=== PATIENT | female | born 1990 | race Asian ===

== ENCOUNTER → 2022-06-27 | Outpatient (CLI) | payer BC ==
[2022-06-27 10:14] LABS: Urine Bacteria NONE SEEN /hpf (None Seen); Urine Blood Negative /uL (Negative); Urine Specific Gravity 1.012 (1.001-1.035); Urine WBC <1 /hpf (0 - 5)
[2022-06-27 10:17] LABS: Basophils # (auto) 0.1 10 ^3/uL (0-0.2); Eosinophils # (auto) 0.3 10 ^3/uL (0-0.8); Eosinophils % (auto) 3.7 % (0.0-7.0); Hematocrit 38.9 % (36.0-46.0); Lymphocytes # (auto) 2.5 10 ^3/uL (0.4-5.4); Lymphocytes % (auto) 36.6 % (10.0-50.0); Mean Corpuscular Hemoglobin 30.7 pg (28.0-32.0); Mean Corpuscular Hgb Conc. 33.5 g/dL (32.0-36.0); Mean Corpuscular Volume 91.8 fL (80.0-100.0); Monocytes # (auto) 0.4 10 ^3/uL (0-1.3); Monocytes % (auto) 6.4 % (0.0-12.0); Neutrophils # (auto) 3.6 10 ^3/uL (1.6-8.6); Neutrophils % (auto) 52.3 % (37.0-80.0); Nucleated Red Blood Cells % 0.1 %; Red Blood Cells 4.24 10^6/uL (4.0-5.20); White Blood Cell 6.8 10^3/uL (4.4-10.8)
[2022-06-27 10:45] LABS: Albumin 3.8 g/dL (3.4-5.0); BUN/Creatinine Ratio 18.8 (10.0-20.0); Bilirubin, Total 0.8 mg/dL (0.2-1.0); Calcium 8.6 mg/dL (8.5-10.1); Total Protein 7.5 g/dL (6.4-8.2)
== END | disposition home or self-care (01) ==
LOC: LAB 09:27
PROVIDERS: ATTEND Internal Medicine
DX: Z00.00 Encounter for general adult medical examination without abnormal findings (principal)
CPT/HCPCS: 36415; 80053; 80061; 81001; 83036; 84439; 84443; 85025; 86703; 86803

== ENCOUNTER → 2022-10-25 | Outpatient (CLI) | payer BC | END | disposition home or self-care (01) | LOC: LAB 07:16 | PROVIDERS: ATTEND Internal Medicine | DX: R94.6 Abnormal results of thyroid function studies (principal) | CPT/HCPCS: 36415; 84439; 84443 ==

== ENCOUNTER → 2023-03-18 | Outpatient (CLI) | payer BC ==
[2023-03-18 15:19] LABS: Basophils # (auto) 0 10 ^3/uL (0-0.2); Basophils % (auto) 0.7 % (0.0-2.0); Eosinophils # (auto) 0.2 10 ^3/uL (0-0.8); Eosinophils % (auto) 3.6 % (0.0-7.0); Hematocrit 40.1 % (36.0-46.0); Hemoglobin 13.2 g/dL (12.2-16.2); Lymphocytes # (auto) 2.2 10 ^3/uL (0.4-5.4); Lymphocytes % (auto) 33.2 % (10.0-50.0); Mean Corpuscular Hemoglobin 30.1 pg (28.0-32.0); Mean Corpuscular Hgb Conc. 32.9 g/dL (32.0-36.0); Mean Corpuscular Volume 91.4 fL (80.0-100.0); Monocytes # (auto) 0.4 10 ^3/uL (0-1.3); Monocytes % (auto) 5.5 % (0.0-12.0); Neutrophils # (auto) 3.7 10 ^3/uL (1.6-8.6); Red Blood Cells 4.39 10^6/uL (4.0-5.20); Red Cell Distribution Width 13.5 % (11.8-14.3); White Blood Cell 6.5 10^3/uL (4.4-10.8)
[2023-03-18 15:41] LABS: % Iron Saturation 13.6 % (15-50)
== END | disposition home or self-care (01) ==
LOC: LAB 15:00
PROVIDERS: ATTEND Dermatology
DX: L63.0 Alopecia (capitis) totalis (principal)
CPT/HCPCS: 36415; 83540; 83550; 85025

== ENCOUNTER → 2023-09-17 | Outpatient (CLI) | payer BC ==
[2023-09-17 13:14] LABS: Basophils # (auto) 0.1 10 ^3/uL (0-0.2); Eosinophils # (auto) 0.3 10 ^3/uL (0-0.8); Hematocrit 40.3 % (36.0-46.0); Hemoglobin 13.8 g/dL (12.2-16.2); Lymphocytes # (auto) 2.4 10 ^3/uL (0.4-5.4); Lymphocytes % (auto) 36.4 % (10.0-50.0); Mean Corpuscular Hemoglobin 31.1 pg (28.0-32.0); Mean Corpuscular Hgb Conc. 34.1 g/dL (32.0-36.0); Mean Corpuscular Volume 91.2 fL (80.0-100.0); Monocytes # (auto) 0.4 10 ^3/uL (0-1.3); Monocytes % (auto) 6.1 % (0.0-12.0); Neutrophils # (auto) 3.4 10 ^3/uL (1.6-8.6); Neutrophils % (auto) 52.5 % (37.0-80.0); Red Blood Cells 4.42 10^6/uL (4.0-5.20); White Blood Cell 6.5 10^3/uL (4.4-10.8)
[2023-09-17 13:33] LABS: Urine Bacteria FEW /hpf (None Seen); Urine Blood TRACE /uL (Negative); Urine Clarity Turbid (Clear); Urine Color Light-Yellow (Yellow); Urine Mucus FEW (None Seen); Urine Protein, UAD Negative (Negative); Urine Specific Gravity 1.015 (1.001-1.035); Urine Urobilinogen Normal (Negative); Urine WBC 1 /hpf (0 - 5); Urine pH 5.5 (5.0-9.0)
[2023-09-17 13:47] LABS: % Iron Saturation 22.2 % (15-50); Alanine Aminotransferase 52 U/L (7-40); Albumin 4.7 g/dL (3.2-4.8); Alkaline Phosphatase 81 U/L (46-116); Anion Gap 4 (5-15); Aspartate Aminotransferase 27 U/L (13-40); BUN/Creatinine Ratio 11.4 (10.0-20.0); Blood Urea Nitrogen 8 mg/dL (9-23); Calcium 9.6 mg/dL (8.5-10.1); Carbon Dioxide 26 mmol/L (20-30); Chloride 109 mmol/L (98-107); Cholesterol 185 mg/dL (< 200); Glucose 83 mg/dL (74-106); HDL Cholesterol 64 mg/dL (40-59); LDL Cholesterol 108 mg/dL (< 100); Potassium 3.9 mmol/L (3.5-5.1); Sodium 139 mmol/L (136-145); Triglycerides 61 mg/dL (< 150)
[2023-09-17 13:48] LABS: Bilirubin, Total 0.8 mg/dL (0.2-1.0); Total Protein 7.6 g/dL (5.7-8.2)
== END | disposition home or self-care (01) ==
LOC: LAB 12:59
PROVIDERS: ATTEND Internal Medicine
DX: Z13.21 Encounter for screening for nutritional disorder (principal); Z00.01 Encounter for general adult medical examination with abnormal findings; E61.1 Iron deficiency
CPT/HCPCS: 36415; 80053; 80061; 81001; 82306; 83036; 83540; 83550; 84439; 84443; 85025

== ENCOUNTER → 2023-11-20 | Outpatient (CLI) | payer BC | END | disposition home or self-care (01) | LOC: LAB 06:44 | PROVIDERS: ATTEND Internal Medicine | DX: Z32.00 Encounter for pregnancy test, result unknown (principal); Z31.9 Encounter for procreative management, unspecified; N92.6 Irregular menstruation, unspecified | CPT/HCPCS: 36415; 84702 ==

== ENCOUNTER → 2024-01-22 | Outpatient (CLI) | payer BC ==
[2024-01-22 08:02] LABS: Alanine Aminotransferase 50 U/L (7-40); Albumin 4.3 g/dL (3.2-4.8); Alkaline Phosphatase 73 U/L (46-116); Anion Gap 8 (5-15); Aspartate Aminotransferase 25 U/L (13-40); BUN/Creatinine Ratio 12.5 (10.0-20.0); Bilirubin, Total 0.9 mg/dL (0.2-1.0); Blood Urea Nitrogen 10 mg/dL (9-23); Calcium 9.6 mg/dL (8.7-10.4); Carbon Dioxide 23 mmol/L (20-31); Chloride 109 mmol/L (98-107); Glucose 87 mg/dL (74-106); Sodium 140 mmol/L (136-145); Total Protein 7.2 g/dL (5.7-8.2)
== END | disposition home or self-care (01) ==
LOC: LAB 07:16
PROVIDERS: ATTEND Internal Medicine
DX: E78.00 Pure hypercholesterolemia, unspecified (principal); E55.9 Vitamin D deficiency, unspecified; R74.01 Elevation of levels of liver transaminase levels
CPT/HCPCS: 36415; 80053; 82306

== ENCOUNTER → 2024-03-11 | Outpatient (CLI) | payer BC | END | disposition home or self-care (01) | LOC: LAB 08:00 | PROVIDERS: ATTEND Obstetrics & Gynecology | DX: R87.619 Unspecified abnormal cytological findings in specimens from cervix uteri (principal) ==

== ENCOUNTER → 2024-07-20 | Outpatient (CLI) | payer BC ==
[2024-07-20 08:10] LABS: Alkaline Phosphatase 60 U/L (46-116); Anion Gap 10 (5-15); BUN/Creatinine Ratio 29.1 (10.0-20.0); Blood Urea Nitrogen 23 mg/dL (9-23); Calcium 9.7 mg/dL (8.7-10.4); Carbon Dioxide 22 mmol/L (20-31); Chloride 107 mmol/L (98-107); Glucose 88 mg/dL (74-106); Potassium 4.3 mmol/L (3.5-5.1); Sodium 139 mmol/L (136-145)
[2024-07-20 08:11] LABS: Total Protein 7.3 g/dL (5.7-8.2)
[2024-07-20 08:12] LABS: Alanine Aminotransferase 55 U/L (7-40); Albumin 4.7 g/dL (3.2-4.8); Aspartate Aminotransferase 27 U/L (13-40); Bilirubin, Total 0.7 mg/dL (0.2-1.0)
== END | disposition home or self-care (01) ==
LOC: LAB 06:37
PROVIDERS: ATTEND Internal Medicine
DX: R74.01 Elevation of levels of liver transaminase levels (principal)
CPT/HCPCS: 36415; 80053

== ENCOUNTER 2024-10-13 06:43 | Outpatient (CLI) | payer BC ==
[2024-10-13 07:47] LABS: Urine Protein, UAD 1+ (Negative)
[2024-10-13 07:52] LABS: Hematocrit 40.5 % (36.0-46.0); Hemoglobin 13.5 g/dL (12.2-16.2); Mean Corpuscular Hemoglobin 30.6 pg (28.0-32.0); Mean Corpuscular Volume 92.0 fL (80.0-100.0); Nucleated Red Blood Cells % 0.1 %
[2024-10-13 08:01] LABS: Beta HCG, Quantitative 0.8 mIU/mL (1.5-4.2)
[2024-10-13 08:04] LABS: Alanine Aminotransferase 26 U/L (7-40); Alkaline Phosphatase 64 U/L (46-116); Anion Gap 12 (5-15); BUN/Creatinine Ratio 20.7 (10.0-20.0); Blood Urea Nitrogen 18 mg/dL (9-23); Calcium 10.2 mg/dL (8.7-10.4); Carbon Dioxide 22 mmol/L (20-31); Cholesterol 178 mg/dL (< 200); Glucose 80 mg/dL (74-106); Potassium 3.9 mmol/L (3.5-5.1); Sodium 142 mmol/L (136-145); Thyroid Stimulating Hormone 2.76 uIU/mL (0.55-4.78); Total Protein 7.6 g/dL (5.7-8.2); Triglycerides 80 mg/dL (< 150)
[2024-10-13 08:05] LABS: Albumin 4.9 g/dL (3.2-4.8); Bilirubin, Total 1.9 mg/dL (0.2-1.0); Chloride 108 mmol/L (98-107); HDL Cholesterol 62 mg/dL (40-59)
[2024-10-13 08:46] LABS: Free T4 (Free Thyroxine) 1.25 ng/dL (0.89-1.76)
[2024-10-13 08:47] LABS: Follicle Stimulating Hormone 2.6 IU/L (SEE BELOW)
[2024-10-13] MEDS ORDERED: TRET0.0212 TOP (13:29)
[2024-10-13] MEDS ORDERED: FOLI-119 PO (13:29)
[2024-10-13] MEDS ORDERED: ERGO1CAP12 PO (13:29)
[2024-10-14] MEDS ORDERED: HYDR-3682 PO (14:01)
[2024-10-14] MEDS ORDERED: SERT-206 PO (14:01)
== END 2024-10-13 19:12 | disposition home or self-care (01) ==
LOC: LAB 06:43
PROVIDERS: ATTEND Internal Medicine
DX: E28.2 Polycystic ovarian syndrome (principal); E61.1 Iron deficiency; E78.00 Pure hypercholesterolemia, unspecified; R74.01 Elevation of levels of liver transaminase levels; Z00.01 Encounter for general adult medical examination with abnormal findings
CPT/HCPCS: 36415; 80053; 80061; 81001; 82626; 82670; 83001; 83002; 83036; 83525; 84144; 84270; 84402; 84403; 84439; 84443; 84702; 85025

== ENCOUNTER 2024-10-13 07:39 | Inpatient (IN) | payer BC ==
[~2024-10-13] VITALS: Ht 165.1 cm; Wt 55.0 kg
--- NOTE | 2024-10-13 08:20 | ECG ---
[facility] Test Date: 2024-10-13 Test Time: 08:05:59 Pat Name: EMANUEL GUZMAN Department: er Room: 0237T Gender: F Education Paraprofessional: cristino : 1990 Requested By: ANGEL MARRERO Order Number: [id number] Reading MD: Bhargav Grijalva Measurements Intervals [place] Rate: 92 P: 76 TX: 140 QRS: 72 QRSD: 83 T: 37 QT: 359 QTc: 445 Interpretive Statements Sinus rhythm RSR' in V1 or V2, right VCD or RVH Borderline T abnormalities, anterior leads Baseline wander in lead(s) II,V4 Electronically Signed On 10-15-2024 19:00:31 PDT by Bhargav Grijalva Please click the below link to view image of tracing.
[2024-10-13 08:35] LABS: Hematocrit 40.8 % (36.0-46.0); Hemoglobin 13.6 g/dL (12.2-16.2); Mean Corpuscular Hemoglobin 30.6 pg (28.0-32.0); Mean Corpuscular Volume 91.9 fL (80.0-100.0); Nucleated Red Blood Cells % 0.2 %
[2024-10-13 08:38] LABS: Potassium 3.9 mmol/L (3.5-5.1); Sodium 141 mmol/L (136-145)
[2024-10-13 08:39] LABS: Anion Gap 11 (5-15); Calcium 10.2 mg/dL (8.7-10.4); Carbon Dioxide 21 mmol/L (20-31)
[2024-10-13 08:44] LABS: BUN/Creatinine Ratio 21.2 (10.0-20.0); Blood Urea Nitrogen 18 mg/dL (9-23); Glucose 80 mg/dL (74-106)
[2024-10-13 08:45] LABS: Chloride 109 mmol/L (98-107)
[2024-10-13] MEDS: LORazepam 0.5 MG TAB PO ONE (08:53)
--- NOTE | 2024-10-13 09:03 | ED.PDOC ---
HPI (NEURO) HPI Comments 34 y/o F, with no prior medical history presents to the ED for CC of dizziness. Patient reports, having x2 syncopal episodes today (10/13/24) upon getting labs drawn at 0600. Patient states, she has been experiencing insomnia, symptoms of malaise, and palpitations x1year since, giving . Patient comments, having near syncopal episode yesterday (10/12/24) while ambulating to the mailbox where she had to lay on the ground to avoid fainting. Patient denies nausea, vomiting, active bleeding, or melena. No other symptoms or modifying factors present at this time. Chief Complaint: Dizziness Time Seen by MD: 08:15 Reviewed Notes: Nurses Notes, Medications, Allergies Information Source: Patient Mode of Arrival: Ambulatory Severity: Moderate Dizziness/Weakness Severity: Unable to do activities Headache Severity: None Timing: Months Duration: Since onset Prehospital treatment: None Weakness Location: Generalized Onset: At rest, With light exertion Circumstances: Recent stress Symptoms: Faintness, Syncope Before: Normal During: Awake After: Normal Mentation History of: None Modifying factors: Nothing Associated Signs and Symptoms: None Past Medical History PAST MEDICAL HISTORY: Denies Surgical History: Denies all surgeries 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 Family History Family History: Unknown Social History Smoker: Non-Smoker Alcohol: Denies ETOH Use Drugs: Denies Drug Use Lives In: Home Constitutional: denies: chills, diaphoresis, fatigue, fever, malaise, sweats, weakness, others EENTM: denies: blurred vision, double vision, ear bleeding, ear discharge, ear drainage, ear pain, ear ringing, eye pain, eye redness, hearing loss, mouth pain, mouth swelling, nasal discharge, nose bleeding, nose congestion, nose pain, photophobia, tearing, throat pain, throat swelling, voice changes, others Respiratory: denies: cough, hemoptysis, orthopnea, SOB at rest, shortness of breath, SOB with excertion, stridor, wheezing, others Cardiovascular: reports: palpitations; denies: chest pain, dizzy spells, diaphoresis, Dyspnea on exertion, edema, irregular heart beat, left arm pain, lightheadedness, PND, syncope, others Gastrointestinal: denies: abdomen distended, abdominal pain, blood streaked bowels, constipated, diarrhea, dysphagia, difficulty swallowing, hematemesis, melena, nausea, poor appetite, poor fluid intake, rectal bleeding, rectal pain, vomiting, others Genitourinary: denies: abnormal vagina bleeding, burning, dyspareunia, dysuria, flank pain, frequency, hematuria, incontinence, pain, , vagina discharge, urgency, others Neurological: reports: dizziness, fainting; denies: headache, left sided numbness, left sided weakness, numbness, paresthesia, pre-existing deficit, right sided numbness, right sided weakness, seizure, speech problems, tingling, tremors, weakness, others Musculoskeletal: denies: back pain, gout, joint pain, joint swelling, muscle pain, muscle stiffness, neck pain, others Integumetry: denies: bruises, change in color, change in hair/nails, dryness, laceration, lesions, lumps, rash, wounds, others Allergic/Immunocompromised: denies: Difficulty Healing, Frequent Infections, Hives, Itching, others Hematologic/Lymphatic: denies: anemia, blood clots, easy bleeding, easy bruising, swollen glands, others Endocrine: denies: excessive hunger, excessive sweating, excessive thirst, excessive urination, flushing, intolerance to cold, intolerance to heat, unexplained weight gain, unexplained weight loss, others Psychiatric: denies: anxiety, bipolar disorder, depression, hopeless, panic disorder, schizophrenia, sleepless, suicidal, others All Other Systems: Reviewed and Negative Physical Exam General Appearance: No Apparent Distress, Normal, Other (tearful) HEENT: Normal ENT Inspection, Pharynx Normal Neck: Full Range of Motion, Non-Tender, Normal, Normal Inspection Respiratory: Chest Non-Tender, Lungs Clear, No Accessory Muscle Use, No Respiratory Distress, Normal Breath Sounds Cardiovascular: No Edema, No Murmur, No Gallop, Normal Peripheral Pulses, Tachycardia Breast Exam: Deferred Gastrointestinal: No Organomegaly, Non Tender, No Pulsatile Mass, Normal Bowel Sounds, Soft Genitalia: Deferred Pelvic: Deferred Rectal: Deferred Extremities: No calf tenderness, Normal capillary refill, Normal inspection, Normal range of motion, Non-tender, No pedal edema Musculoskeletal : Apperance: Normal Neurologic: Alert, band nailer II-XII nml as Tested, No Motor Deficits, Normal Affect, Normal Mood, No Sensory Deficits Cerebellar Function: Normal Reflexes: Normal Skin: Dry, Normal Color, Warm Lymphatic: No Adenopathy Was a procedure done? Was a procedure done?: No Differential Diagnosis (SZ) Seizure: Syncope General Weakness: Anemia, Dehydration, Electrolyte imbalance, Hypotension Headache: N/A X-Ray, Labs, Meds, VS Vital Signs Date Time Temp Pulse Resp B/P (MAP) Pulse Ox O2 Delivery O2 Flow Rate FiO2 10/13/24 09:48 97.5 64 18 136/56 (82) 98 97.5 10/13/24 08:05 92 10/13/24 07:50 98.1 106 16 104/58 (73) 100 98.1 10/13/24 07:50 98.1 106 16 104/58 (73) 100 98.1 Lab Test 10/13/24 09:37 10/13/24 07:56 10/13/24 07:00 Range/Units Troponin I High Sensitivity < 3 L < 3 L </=34 ng/L POC Glucose 122 H 70-106 mg/dl White Blood Count 6.5 4.4-10.8 10^3/uL Red Blood Count 4.44 4.0-5.20 10^6/uL Hemoglobin 13.6 12.2-16.2 g/dL Hematocrit 40.8 36.0-46.0 % Mean Corpuscular Volume 91.9 80.0-100.0 fL Mean Corpuscular Hemoglobin 30.6 28.0-32.0 pg Mean Corpuscular Hemoglobin Concent 33.3 32.0-36.0 g/dL Red Cell Distribution Width 13.5 11.8-14.3 % Platelet Count 217 140-450 10^3/uL Mean Platelet Volume 10.4 6.9-10.8 fL Neutrophils (%) (Auto) 58.4 37.0-80.0 % Lymphocytes (%) (Auto) 30.5 10.0-50.0 % Monocytes (%) (Auto) 6.3 0.0-12.0 % Eosinophils (%) (Auto) 3.7 0.0-7.0 % Basophils (%) (Auto) 1.1 0.0-2.0 % Neutrophils # (Auto) 3.8 1.6-8.6 10 ^3/uL Lymphocytes # (Auto) 2.0 0.4-5.4 10 ^3/uL Monocytes # (Auto) 0.4 0-1.3 10 ^3/uL Eosinophils # (Auto) 0.2 0-0.8 10 ^3/uL Basophils # (Auto) 0.1 0-0.2 10 ^3/uL Nucleated Red Blood Cells 0.2 % Sodium Level 141 136-145 mmol/L Potassium Level 3.9 3.5-5.1 mmol/L Chloride Level 109 H 98-107 mmol/L Carbon Dioxide Level 21 20-31 mmol/L Anion Gap 11 5-15 Blood Urea Nitrogen 18 9-23 mg/dL Creatinine 0.85 0.550-1.02 mg/dL Glomerular Filtration Rate Calc 91 >90 mL/min BUN/Creatinine Ratio 21.2 H 10.0-20.0 Serum Glucose 80 74-106 mg/dL Calcium Level 10.2 8.7-10.4 mg/dL Thyroid Stimulating Hormone (TSH) 2.69 0.55-4.78 uIU/mL Current Medications Medications (Trade) Dose Ordered Sig/Idris Route Start Time Stop Time Status Last Admin Lorazepam (Ativan Tablet) 1 mg ONCE ONCE PO 10/13/24 08:30 10/13/24 08:31 DC 10/13/24 08:53 Time of 1ST Reevaluation: 08:45 Reevaluation 1ST: Unchanged Patient Education/Counseling: Diagnosis, Treatment Family Education/Counseling: No Family Present Departure 1 Departure Time of Disposition: 10:21 (Patient with a worsening palpitations and generalized weakness. ) Impression: Primary Impression: Heart palpitations Additional Impressions: Near syncope Generalized weakness Insomnia Qualified Codes: F51.01 - Primary insomnia Disposition: ADMITTED INPATIENT Admit to: Med Surg Condition: Serious Critical Care Note Critical Care Time?: No Stability Stability form required: No Heart Score Heart Score: Heart Score Response (Comments) Value History N/A 0 EKG N/A 0 Age N/A 0 Risk Factors N/A 0 Troponin N/A 0 Total 0 I personally scribed for ANGEL MARRERO MD ([email or web address]) on 10/13/24 at 09:03. Electro nically submitted by Stephanie Martin ([email or web address]). I personally scribed for ANGEL MARRERO MD ([email or web address]) on 10/13/24 at 09:07. Electronically submitted by Stephanie Martin ([email or web address]). ANGEL MARRERO MD Oct 13, 2024 09:03
[2024-10-13] MEDS ORDERED: ERGO1CAP12 PO (13:29)
[2024-10-13] MEDS ORDERED: TRET0.0212 TOP (13:29)
[2024-10-13] MEDS ORDERED: FOLI-119 PO (13:29)
[2024-10-13] MEDS ORDERED: ERGOCALCIFEROL 50,000 UNIT(1.25MG) CAP PO SCH (13:30)
[2024-10-13] MEDS ORDERED: HYDROcodone-ACET 5/325MG TAB PO PRN (13:30)
[2024-10-13] MEDS ORDERED: DOCUSATE SOD 100 MG CAP PO PRN (13:30)
[2024-10-13] MEDS ORDERED: ACETAMINOPHEN 325 MG TAB PO PRN (13:30)
[2024-10-13] MEDS ORDERED: MORPHINE SULFATE INJ 2 MG/ml SYRG IV PRN (13:30)
[2024-10-13] MEDS ORDERED: ONDANSETRON HCL 4 MG/2 ML VIAL IV PRN (13:30)
[2024-10-13] MEDS ORDERED: NITROGLYCERIN 0.4 MG SL TAB SL PRN (13:30)
[2024-10-13] MEDS ORDERED: hydrOXYzine HCL 10 MG TAB PO PRN (13:30)
--- NOTE | 2024-10-13 14:00 | DVHHP2 ---
History of Present Illness Reason for Visit: Near syncope History of Present Illness Francine Smith is a 34-year-old female with past medical history of anxiety and insomnia, who came to the hospital due to Near syncope event. Patient states she had a near syncope episode yesterday and today. She states yesterday it happened when she was walking to her mailbox. She had to stop and hold on to the mailbox to not fall. Then this morning, she was having her labs drawn when it happened again. She was sitting down when it happened today, and she states she became dizzy and things went black. Patient also states she has been having problems with her anxiety and insomnia. She has seen her primary care provider for this and declined a psychiatric consult because she thought she could deal with it her self through yoga and other lifestyle modifications. However she states her anxiety and insomnia have worsened and our interfering with her daily life. She would like a psychiatry consult at this time. Psych: Anxiety, Other (insomnia) Past Surgical History: Other (right oophorectomy) Smoke: No ALCOHOL: none Drugs: None Lives: with Family Review of Systems Constitutional: Yes: Other (anxiety, insomnia); No: Fever, Chills, Sweats, Weakness, Malaise Eyes: No: Pain, Vision change, Conjunctivae inflammation, Eyelid inflammation, Other, Redness ENT: No: Ear pain, Ear discharge, Nose pain, Nose discharge, Nose congestion, Mouth pain, Mouth swelling, Throat pain, Throat swelling, Other Respiratory: No: Cough, Dry, Shortness of breath, SOB with excertion, Wheezing, Hemoptysis, Pleuritic Pain, Sputum, Wheezing, Other Cardiovascular: No: Chest Pain, Palpitations, Orthopnea, Paroxysmal Noc. Dyspnea, Edema, Lt Headedness, Other Gastrointestinal: No: Nausea, Vomiting, Abdominal Pain, Diarrhea, Constipation, Melena, Hematochezia, Other Genitourinary: No Dysuria, No Frequency, No Incontinence, No Hematuria, No Retention, No Other Musculoskeletal: No: other, neck pain, shoulder pain, arm pain, back pain, hand pain, leg pain, foot pain Skin: No: Rash, Lesions, Jaundice, Bruising, Other Neurological: Other (Near syncope); No: Weakness, Numbness, Incoordination, Change in speech, Confusion, Seizures Allergies: Coded Allergies: NO KNOWN ALLERGIES (Unverified , 10/13/24) Medications Current Medications Medications Dose Ordered Sig/Idris Route Start Time Stop Time Status Last Admin Dose Admin Sodium Chloride 10 ml Q8HR IV 10/13/24 14:00 UNV Acetaminophen/ Hydrocodone Bitart 1 tab Q4HP PRN PO 10/13/24 13:30 UNV Exam Vital Signs Vital Signs Date Time Temp Pulse Resp B/P (MAP) Pulse Ox O2 Delivery O2 Flow Rate FiO2 10/13/24 09:48 97.5 64 18 136/56 (82) 98 97.5 General Appearance: Alert, Oriented X3, Cooperative, mild distress HEENT: Atraumatic, PERRLA, Other (Mucous membr dry) Respiratory: Clear to auscultation, Normal air movement Cardiovascular: Regular rate, Normal S1, Normal S2, No murmurs Abdominal: Normal bowel sounds, Soft, No tenderness, No hepatospenomegaly Extremities: No clubbing, No cyanosis, No edema, Normal pulses Skin: No rashes, No breakdown, No significant lesion Neuro: Normal gait, Normal speech, Strength at 5/5 X4 ext Psych/Mental Status: Mental status NL, Mood NL Labs/Xrays Labs Test 10/13/24 09:37 10/13/24 07:56 10/13/24 07:00 Range/Units Troponin I High Sensitivity < 3 L </=34 ng/L POC Glucose 122 H 70-106 mg/dl White Blood Count 6.5 4.4-10.8 10^3/uL Red Blood Count 4.44 4.0-5.20 10^6/uL Hemoglobin 13.6 12.2-16.2 g/dL Hematocrit 40.8 36.0-46.0 % Mean Corpuscular Volume 91.9 80.0-100.0 fL Mean Corpuscular Hemoglobin 30.6 28.0-32.0 pg Mean Corpuscular Hemoglobin Concent 33.3 32.0-36.0 g/dL Red Cell Distribution Width 13.5 11.8-14.3 % Platelet Count 217 140-450 10^3/uL Mean Platelet Volume 10.4 6.9-10.8 fL Neutrophils (%) (Auto) 58.4 37.0-80.0 % Lymphocytes (%) (Auto) 30.5 10.0-50.0 % Monocytes (%) (Auto) 6.3 0.0-12.0 % Eosinophils (%) (Auto) 3.7 0.0-7.0 % Basophils (%) (Auto) 1.1 0.0-2.0 % Neutrophils # (Auto) 3.8 1.6-8.6 10 ^3/uL Lymphocytes # (Auto) 2.0 0.4-5.4 10 ^3/uL Monocytes # (Auto) 0.4 0-1.3 10 ^3/uL Eosinophils # (Auto) 0.2 0-0.8 10 ^3/uL Basophils # (Auto) 0.1 0-0.2 10 ^3/uL Nucleated Red Blood Cells 0.2 % Sodium Level 141 136-145 mmol/L Potassium Level 3.9 3.5-5.1 mmol/L Chloride Level 109 H 98-107 mmol/L Carbon Dioxide Level 21 20-31 mmol/L Anion Gap 11 5-15 Blood Urea Nitrogen 18 9-23 mg/dL Creatinine 0.85 0.550-1.02 mg/dL Glomerular Filtration Rate Calc 91 >90 mL/min BUN/Creatinine Ratio 21.2 H 10.0-20.0 Serum Glucose 80 74-106 mg/dL Calcium Level 10.2 8.7-10.4 mg/dL Thyroid Stimulating Hormone (TSH) 2.69 0.55-4.78 uIU/mL Assessment/Plan Assessment/Plan Assessment: Near syncope, Anxiety, Insomnia, Dehydration, Plan: Admit to Tele, Tele psychiatry consult, ECHO, Carotid duplex, PRN anxiety medication, PRN insomnia medication, IV hydration, Plan discussed with: Patient My Orders Orders - BINA KHAN Procedure Category Date Status Time Admit ADMIT 10/13/24 Transmitted 13:24 Code Status CODE 10/13/24 Transmitted 13:24 Sodium Chloride Lock PHA 10/13/24 Logged (Saline Lock Ns) 14:00 Hydrocodone-Acet PHA 10/13/24 Logged 5/325mg Tab ([place] 13:30 Temazepam (Restoril) PHA 10/13/24 Transmitted 13:30 Ondansetron Hcl PHA 10/13/24 Transmitted (Zofran) 13:30 Docusate Sodium PHA 10/13/24 Transmitted Capsule (Colace 13:30 Complete Blood Count LAB 10/14/24 Verified 04:00 Comprehensive LAB 10/14/24 Verified Metabolic Panel 04:00 Echo 2d Mode Cardiac US 10/13/24 Logged DOP 13:24 Carotid Duplx W Color US 10/13/24 Logged DOP 13:24 Condition: Serious [facility] 10/13/24 In Process 13:24 Acetaminophen Tablet [facility] 10/13/24 Transmitted (Tylenol Tablet) 13:30 Nitroglycerin PHA 10/13/24 Transmitted Sublingual (Ntrostat 13:30 Morphine Sulfate PHA 10/13/24 Transmitted Injection 13:30 Stat Ekg For Chest [facility] 10/13/24 In Process Pain 13:24 Notify Md Of Changes [facility] 10/13/24 In Process From Base 13:24 Hall Monitor For [facility] 10/13/24 In Process 24 Hours 13:24 Emergency Dysrhythmia [facility] 10/13/24 In Process Protocol 13:24 Rhythm Strips Once [facility] 10/13/24 In Process Every Shift 13:24 Oxygen By Nasal RT 10/13/24 Transmitted Cannula 13:24 *Tele Psych Consult CONS 10/13/24 Transmitted 13:24 Hydroxyzine Oral PHA 10/13/24 Transmitted (Vistaril Oral) 13:30 Ergocalciferol [facility] 10/13/24 Transmitted (Vitamin D 50,000 13:30 (Nf) Folic Acid PHA 10/14/24 Transmitted 10:00 (Nf) Tretinoin PHA 10/14/24 Transmitted 10:00 Date of Service: Oct 13, 2024 Billing Provider: BINA KHAN Common Visit Codes: [id number] INP/OBS CARE (MOD) BINA KHAN Oct 13, 2024 14:00
--- NOTE | 2024-10-13 15:29 | DVH ---
Indication: Near syncope Technique: Real-time ultrasound images of the neck vessels with hobbs-scale, color and wave Doppler we re obtained. Comparison: None Findings: Mild atherosclerotic plaque. The following peak systolic velocities were recorded in cm/sec: Right internal carotid: 83 Right common carotid: 82 Right external carotid: 108 Right internal/common carotid ratio: 1 Left internal carotid: 106 Left common carotid: 100 Left external carotid: 87 Left internal/common carotid ratio: 1.1 Right vertebral artery: Patent with normal antegrade direction of flow. Left vertebral artery: Patent with normal antegrade direction of flow. Impression: No hemodynamically significant stenosis by velocity criteria.
[2024-10-13] MEDS: SODIUM CHLOR 0.9% PF (SALINE LOCK) 10ML VIAL/SYR IV SCH (17:07)
[2024-10-13] MEDS: SODIUM CHLORIDE 0.9% 1,000 ML IV ONE ×2 (17:07→17:09)
[2024-10-13 21:39] VITALS: PULSE 75; RESP 20; O2SAT 100
[2024-10-13 22:40] LABS: Urine Protein, UAD Negative (Negative)
[2024-10-13 23:03] VITALS: BP 91/55; PULSE 76; RESP 15; TEMP 98; O2SAT 98
[2024-10-14 01:00] VITALS: BP 96/59; PULSE 72; RESP 14; TEMP 97.6; O2SAT 98
[2024-10-14] MEDS: TEMAZEPAM 15 MG CAP PO PRN (01:02)
[2024-10-14 05:00] VITALS: BP 96/51; PULSE 69; RESP 14; TEMP 97.7; O2SAT 98
[2024-10-14 08:00] VITALS: PULSE 77
[2024-10-14 08:01] LABS: Hematocrit 35.5 % (36.0-46.0); Hemoglobin 11.9 g/dL (12.2-16.2); Mean Corpuscular Hemoglobin 30.6 pg (28.0-32.0); Mean Corpuscular Volume 91.5 fL (80.0-100.0); Nucleated Red Blood Cells % 0.0 %
[2024-10-14 08:26] LABS: Alanine Aminotransferase 17 U/L (7-40); Albumin 3.8 g/dL (3.2-4.8); Alkaline Phosphatase 51 U/L (46-116); Anion Gap 10 (5-15); BUN/Creatinine Ratio 19.4 (10.0-20.0); Blood Urea Nitrogen 13 mg/dL (9-23); Calcium 8.9 mg/dL (8.7-10.4); Carbon Dioxide 21 mmol/L (20-31); Potassium 3.6 mmol/L (3.5-5.1); Sodium 143 mmol/L (136-145); Total Protein 5.8 g/dL (5.7-8.2)
[2024-10-14 08:39] LABS: Bilirubin, Total 1.5 mg/dL (0.2-1.0); Chloride 112 mmol/L (98-107); Glucose 73 mg/dL (74-106)
[2024-10-14 09:00] VITALS: BP 109/67; PULSE 79; RESP 18; TEMP 97.7; O2SAT 99
[2024-10-14] MEDS: FOLIC ACID 1 MG TAB PO SCH (09:57)
[2024-10-14] MEDS ORDERED: PATIENTS OWN MEDICATION (Folic Acid 1 TAB) PO SCH (10:00)
--- NOTE | 2024-10-14 10:51 | DVHDS2 ---
Discharge Summary Date of Admission Oct 13, 2024 at 13:24 Date of Discharge: Oct 14, 2024 Labs/Diagnostic Data: Laboratory Results Test 10/14/24 06:24 10/13/24 22:30 10/13/24 09:37 10/13/24 07:56 White Blood Count 5.8 10^3/uL (4.4-10.8) Red Blood Count 3.89 10^6/uL (4.0-5.20) Hemoglobin 11.9 g/dL (12.2-16.2) Hematocrit 35.5 % (36.0-46.0) Mean Corpuscular Volume 91.5 fL (80.0-100.0) Mean Corpuscular Hemoglobin 30.6 pg (28.0-32.0) Mean Corpuscular Hemoglobin Concent 33.5 g/dL (32.0-36.0) Red Cell Distribution Width 13.4 % (11.8-14.3) Platelet Count 188 10^3/uL (140-450) Mean Platelet Volume 10.2 fL (6.9-10.8) Neutrophils (%) (Auto) 53.9 % (37.0-80.0) Lymphocytes (%) (Auto) 33.9 % (10.0-50.0) Monocytes (%) (Auto) 6.8 % (0.0-12.0) Eosinophils (%) (Auto) 4.4 % (0.0-7.0) Basophils (%) (Auto) 1.0 % (0.0-2.0) Neutrophils # (Auto) 3.1 10 ^3/uL (1.6-8.6) Lymphocytes # (Auto) 2.0 10 ^3/uL (0.4-5.4) Monocytes # (Auto) 0.4 10 ^3/uL (0-1.3) Eosinophils # (Auto) 0.3 10 ^3/uL (0-0.8) Basophils # (Auto) 0.1 10 ^3/uL (0-0.2) Nucleated Red Blood Cells 0.0 % Sodium Level 143 mmol/L (136-145) Potassium Level 3.6 mmol/L (3.5-5.1) Chloride Level 112 mmol/L (98-107) Carbon Dioxide Level 21 mmol/L (20-31) Anion Gap 10 (5-15) Blood Urea Nitrogen 13 mg/dL (9-23) Creatinine 0.67 mg/dL (0.550-1.02) Glomerular Filtration Rate Calc 116 mL/min (>90) BUN/Creatinine Ratio 19.4 (10.0-20.0) Serum Glucose 73 mg/dL (74-106) Calcium Level 8.9 mg/dL (8.7-10.4) Total Bilirubin 1.5 mg/dL (0.2-1.0) Aspartate Amino Transferase (AST) 16 U/L (13-40) Alanine Aminotransferase (ALT) 17 U/L (7-40) Alkaline Phosphatase 51 U/L (46-116) Total Protein 5.8 g/dL (5.7-8.2) Albumin 3.8 g/dL (3.2-4.8) Urine Color Yellow (Yellow) Urine Clarity Clear (Clear) Urine pH 5.5 (5.0-9.0) Urine Specific [place] 1.023 (1.001-1.035) Urine Protein Negative (Negative) Urine Ketones 2+ (Negative) Urine Blood Negative /uL (Negative) Urine Nitrite Negative (Negative) Urine Bilirubin Negative (Negative) Urine Urobilinogen 2 mg/dL (Negative) Urine Leukocyte Esterase 1+ /uL (Negative) Urine RBC 4 /hpf (0 - 4) Urine Microscopic WBC 7 /HPF (0-5) Urine Squamous Epithelial Cells Few /hpf (<5) Urine Bacteria Few /hpf (None Seen) Urine Mucus Few (None Seen) Urine Glucose Normal mg/dL (Normal) Troponin I High Sensitivity < 3 ng/L (</=34) POC Glucose 122 mg/dl (70-106) Test 10/13/24 07:00 Thyroid Stimulating Hormone (TSH) 2.69 uIU/mL (0.55-4.78) Other Laboratory Tests 10/14/24 06:24 Brief Hx & Hospital Course: see dictated note Condition at Discharge: Good Final Diagnosis/Problems List depression Discharge Disposition: Home Discharge Instruct/Medications Diet: Regular Activity: No Restrictions, As Tolerated Follow Up/Referral: fu with pcp/psych Medications: per psych Scheduled Ergocalciferol (Vitamin D), 1 CAP PO QWEEKLY, (Reported) Folic Acid (Folic Acid), 1 TAB PO DAILY, (Reported) Tretinoin (Tretinoin), 1 APPLIC TOP DAILY, (Reported) Discharge Statement: "Patient was advised to return to the ER or call 911 if any headaches, dizziness, shortness of breath, chest pain, abdominal pain, bleeding, fevers, or worsening of medical condition. Patient was counseled about treatment plan, medications, possible side effects, patientverbalized understanding. All questions were answered to the best of my ability. This discharge took greater then 30 minutes in planning, reviewing documentation, counseling the patient, and discussing with other team members." ASSESSMENT ASSESSMENT Assessment depression Date of Service: Oct 14, 2024 Billing Provider: JOSH JONES MD Common Visit Codes: 92692-CKQ/OBS DISCH DAY >30min JOSH JONES MD Oct 14, 2024 10:51
--- NOTE | 2024-10-14 10:57 | DVHDS ---
HISTORY OF PRESENT ILLNESS: The patient is a 34-year-old lady who was admitted with a history of anxiety, insomnia, and near-syncopal episode. HOSPITAL COURSE: The patient had labs done that were within normal limits. TSH was 2.69. UA was essentially negative. The patient had a carotid Doppler that showed no significant stenosis. The patient had an echocardiogram that is pending. She is also to have a Telepsychiatry consult before discharge. The patient will be discharged when cleared by Telepsych to resume her home medications and be on medications as per Psychiatry. She will follow up with her primary as well as Psychiatry as needed. FINAL DIAGNOSES: * Near syncope, likely vasovagal. * Likely depression with anxiety. Time spent in discharge planning and review of plan with the patient and nursing was 38 minutes. MD MARICRUZ Morris/FER TID: [id number] RECEIPT: [id number]
--- NOTE | 2024-10-14 11:57 | DVHINCON2 ---
Date of Service if different f: Oct 14, 2024 Consultation ([facility]) Labs Laboratory Tests Test 10/13/24 07:00 10/13/24 07:56 10/13/24 09:37 10/13/24 22:30 Thyroid Stimulating Hormone (TSH) 2.69 uIU/mL (0.55-4.78) Bedside Glucose 122 mg/dl (70-106) Troponin I High Sensitivity < 3 ng/L (</=34) Urine Color Yellow (Yellow) Urine Clarity Clear (Clear) Urine pH 5.5 (5.0-9.0) Urine Specific [place] 1.023 (1.001-1.035) Urine Protein Negative (Negative) Urine Ketones 2+ (Negative) Urine Blood Negative /uL (Negative) Urine Nitrite Negative (Negative) Urine Bilirubin Negative (Negative) Urine Urobilinogen 2 mg/dL (Negative) Urine Leukocyte Esterase 1+ /uL (Negative) Urine RBC 4 /hpf (0 - 4) Urine Microscopic WBC 7 /HPF (0-5) Urine Squamous Epithelial Cells Few /hpf (<5) Urine Bacteria Few /hpf (None Seen) Urine Mucus Few (None Seen) Urine Glucose Normal mg/dL (Normal) Test 10/14/24 06:24 White Blood Count 5.8 10^3/uL (4.4-10.8) Red Blood Count 3.89 10^6/uL (4.0-5.20) Hemoglobin 11.9 g/dL (12.2-16.2) Hematocrit 35.5 % (36.0-46.0) Mean Corpuscular Volume 91.5 fL (80.0-100.0) Mean Corpuscular Hemoglobin 30.6 pg (28.0-32.0) Mean Corpuscular Hemoglobin Concent 33.5 g/dL (32.0-36.0) Red Cell Distribution Width 13.4 % (11.8-14.3) Platelet Count 188 10^3/uL (140-450) Mean Platelet Volume 10.2 fL (6.9-10.8) Neutrophils (%) (Auto) 53.9 % (37.0-80.0) Lymphocytes (%) (Auto) 33.9 % (10.0-50.0) Monocytes (%) (Auto) 6.8 % (0.0-12.0) Eosinophils (%) (Auto) 4.4 % (0.0-7.0) Basophils (%) (Auto) 1.0 % (0.0-2.0) Neutrophils # (Auto) 3.1 10 ^3/uL (1.6-8.6) Lymphocytes # (Auto) 2.0 10 ^3/uL (0.4-5.4) Monocytes # (Auto) 0.4 10 ^3/uL (0-1.3) Eosinophils # (Auto) 0.3 10 ^3/uL (0-0.8) Basophils # (Auto) 0.1 10 ^3/uL (0-0.2) Nucleated Red Blood Cells 0.0 % Sodium Level 143 mmol/L (136-145) Potassium Level 3.6 mmol/L (3.5-5.1) Chloride Level 112 mmol/L (98-107) Carbon Dioxide Level 21 mmol/L (20-31) Anion Gap 10 (5-15) Blood Urea Nitrogen 13 mg/dL (9-23) Creatinine 0.67 mg/dL (0.550-1.02) Glomerular Filtration Rate Calc 116 mL/min (>90) BUN/Creatinine Ratio 19.4 (10.0-20.0) Serum Glucose 73 mg/dL (74-106) Calcium Level 8.9 mg/dL (8.7-10.4) Total Bilirubin 1.5 mg/dL (0.2-1.0) Aspartate Amino Transf (AST/SGOT) 16 U/L (13-40) Alanine Aminotransferase (ALT/SGPT) 17 U/L (7-40) Alkaline Phosphatase 51 U/L (46-116) Total Protein 5.8 g/dL (5.7-8.2) Albumin 3.8 g/dL (3.2-4.8) Appetite: Fair Appearance: Stated age, Groomed, Clean Psychomotor activity: WNL Behavioral: Cooperative Eye contact: Appropriate Speech: WNL Affect: Mood Congruent Mood: Depressed, Anxious Thought processes: Linear/Goal-directed Thought content: WNL Suicidal ideations: Absent Homicidal ideations: Absent Orientation: Person, Place, Time, Situation Memory intact: Recent Intellect: Average Abstractability: WNL Concentration: Adequate Attention: Adequate Judgement: WNL Insight: Fair Vitals Vital Signs Date Time Temp Pulse Resp B/P (MAP) Pulse Ox O2 Delivery O2 Flow Rate FiO2 10/14/24 09:00 97.7 79 18 109/67 (81) 99 97.7 10/13/24 23:03 Room Air* 0 21 Current medications Current Medications Medications Dose Ordered Sig/Idris Route Start Time Stop Time Status Last Admin Dose Admin Sodium Chloride 10 ml Q8HR IV 10/13/24 14:00 10/14/24 06:16 10 ML Acetaminophen/ Hydrocodone Bitart 1 tab Q4HP PRN PO 10/13/24 13:30 Temazepam 15 mg QHSP PRN PO 10/13/24 13:30 10/14/24 01:02 15 MG Ondansetron HCl 4 mg Q4HP PRN IV 10/13/24 13:30 Docusate Sodium 100 mg BIDPRN PRN PO 10/13/24 13:30 Acetaminophen 650 mg Q6HP PRN PO 10/13/24 13:30 Nitroglycerin 0.4 mg Q5MINP PRN SL 10/13/24 13:30 Morphine Sulfate 2 mg Q30M PRN IV 10/13/24 13:30 Hydroxyzine HCl 20 mg Q6HP PRN PO 10/13/24 13:30 Ergocalciferol 50,000 unit QWEEKLY PO 10/13/24 13:30 Patient Own Medication 1 tab DAILY PO 10/14/24 10:00 UNV Patient Own Medication 1 applic DAILY TOP 10/14/24 10:00 Folic Acid 1 mg DAILY PO 10/14/24 10:00 10/14/24 09:57 1 MG Treatment plan discussed: Family Medication adjusted: Yes Diagnosis: MDD, recurrent unspecified; generalized anxiety disorder Plan : This is a 34-year-old female reporting mood and anxiety symptoms for the past 1-2 years Patient would benefit from use of antidepressants and therapy. She agrees to plan Patient may discharge after medical clearance, she does not meet criteria for hold Recommend to start Sertraline 25mg po daily x2 weeks and increase to 50mg po daily after 2 weeks. May use Lorazepam for short terms, pt is requesting this or trial of Hydroxyzine pamoate 50mg po qhs prn insomnia History of Present Illness Reason for Consult : patient reports depression and anxiety symptoms HPI : This is a 34-year-old female with no prior mental health diagnoses. She presents here for syncope episode yesterday and today while having labs drawn. She denies other events. Patient is evaluated via telepsychiatry with at bedside. She reports anxiety and depression symptoms since mar 2023. No known trigger for this. She reports feeling sad all the time, having crying spells daily. She is constantly worrying about multiple things daily. She has trouble relaxing and focusing. She has little sleep, she tries to sleep around 11pm but often awake until 1am, then wakes up around 4am, tries to sleep again, maybe until 6am. She wakes up very tired. She has been having more headaches due to lack of adequate sleep. She denies any increase in energy or activities. She reports anhedonia, no longer likes going to movies or binge watching shows as she previously enjoyed. She denies hx of krishna or psychotic symptoms. She reports her appetite is often low but sometimes with increased appetite. She denies any hx of auditory/visual hallucinations or paranoia. She denies thoughts of not wanting to live. She denies suicidal/homicidal ideation. She reports her mood symptoms have put a strain on her relationship with . She would like treatment and to feel better. They want to start trying to have a family, but due to her symptoms have not been active sexually recently. Past Psychiatric History : She denies any past psych admissions, holds or suicide attempts. She denies trials of psychotropic medications. She denies current outpatient or mental health follow up Past Medical History : She denies Social History : She is and lives with . She moved to [place] with 5 years ago and waiting her work authorization, presently not employed. They do not have children yet. She reports mom has history of depression and anxiety and uses antidepressants. She denies other known family history. She denies any use of drugs or alcohol. IMELDA ROSS DNP Oct 14, 2024 11:57
[2024-10-14 13:30] VITALS: BP 102/58; PULSE 79; RESP 16; TEMP 98.3; O2SAT 98
[2024-10-14] MEDS ORDERED: HYDR-3682 PO (14:01)
[2024-10-14] MEDS ORDERED: SERT-206 PO (14:01)
[2024-10-14 16:51] VITALS: BP 99/58; PULSE 96; RESP 16; O2SAT 99
--- NOTE | 2024-10-15 13:22 | DVHSR ---
APPROVED REPORT EXAM: Two-dimensional and M-mode echocardiogram with Doppler and color Doppler. Blood Pressure: 96/51 mmHg INDICATION Near Syncope RISK FACTORS Height: 5'5", Weight: 121 DIMENSIONS LVDd4.5 (3.8-5.7cm)LA (2D)3.9 (1.9-4.0cm)Aortic Root3.1 (2.0-3.7cm) LVDs3.1 (2.5-4.0cm)LA (MM) (1.9-4.0cm)Aortic Cusp Exc2.0 (1.5-2.0cm) EF (%) 60.0 (55-70%)Rt. Atrium3.4 (1.9-4.0cm)Asc. Aorta2.9 cm IVSd0.5 (0.7-1.1cm)RV (D)3.5 (1.8-2.4cm) PWd0.7 (0.7-1.1cm) Mitral Valve MitralMitral Stenosis E wave0.81m/sMV Mean GR.mmHg A wave0.56m/sMV Peak GR.mmHg E/A ratio1.42D MVAcm2 DECEL [id number] 1/2 Timems Aortic Valve Aortic ValveAortic Stenosis V10.81m/Lucho Mean GR.3mmHg V21.06m/Lucho Peak GR.5mmHg LVOT Diameter2.1 (1.8-2.4cm)Doppler AVA2.65cm2 Pulmonic Valve V20.90m/s Other Information Quality : Technically LimitedRhythm : Technically limited study due to body habitus. Conclusion Sinus rhythm. Normal chamber sizes. Valves are normal. EF of 60% with normal RV function. Dopplers unremarkable. No pericardial effusion masses or vegetations.
== END 2024-10-14 17:40 | disposition home or self-care (01) | DRG 312 ==
LOC: ER 07:39 → OVERFLOW 13:24 → TELE-WESTW 22:45 → TELE-EAST 10-14 06:59
PROVIDERS: ADMIT Internal Medicine; ATTEND Internal Medicine
DX: R55 Syncope and collapse (principal); F33.9 Major depressive disorder, recurrent, unspecified; G47.00 Insomnia, unspecified; E86.0 Dehydration; F41.1 Generalized anxiety disorder; R00.2 Palpitations; Z90.721 Acquired absence of ovaries, unilateral; Z81.8 Family history of other mental and behavioral disorders
CPT/HCPCS: 36415; 80048; 80053; 81001; 82962; 84443; 84484; 85025; 93005; 93306; 93886; G0378

== ENCOUNTER 2024-12-29 15:00 | Outpatient (CLI) | payer BC ==
[~2024-12-29 15:00] MED LIST: ERGO1CAP12 PO; FOLI-119 PO; HYDR-3682 PO; SERT-206 PO; TRET0.0212 TOP
[2024-12-29 15:31] LABS: Urine Protein, UAD Negative (Negative)
[2024-12-29 15:33] LABS: Alanine Aminotransferase 16 U/L (7-40); Albumin 4.5 g/dL (3.2-4.8); Alkaline Phosphatase 62 U/L (46-116); Anion Gap 10 (5-15); BUN/Creatinine Ratio 17.4 (10.0-20.0); Blood Urea Nitrogen 12 mg/dL (9-23); Calcium 9.3 mg/dL (8.7-10.4); Carbon Dioxide 23 mmol/L (20-31); Chloride 106 mmol/L (98-107); Glucose 81 mg/dL (74-106); Potassium 3.8 mmol/L (3.5-5.1); Sodium 139 mmol/L (136-145); Total Protein 7.3 g/dL (5.7-8.2)
[2024-12-29 15:34] LABS: Bilirubin, Total 1.3 mg/dL (0.2-1.0)
== END 2024-12-29 17:00 | disposition home or self-care (01) ==
LOC: LAB 15:00
PROVIDERS: ATTEND Internal Medicine
DX: E78.00 Pure hypercholesterolemia, unspecified (principal); R82.90 Unspecified abnormal findings in urine; R94.4 Abnormal results of kidney function studies; R17 Unspecified jaundice
CPT/HCPCS: 36415; 80053; 81001